=== PATIENT | male | born 1960 | race Caucasian/White ===

== ENCOUNTER 2016-08-17 09:16 | Emergency (ER) | payer OTHER ==
[2016-08-17] MEDS ORDERED: NS 0.9% 1000 ML* 1,000 ML IV ONE (09:35)
[2016-08-17 10:08] LABS: Hematocrit 42 % (42-52); Hemoglobin 13.9 g/dl (14.0-18.0); Mean Corpuscular HGB Conc 33 g/dl (31-36); Mean Corpuscular Hemoglobin 30 pg (27-31); Mean Corpuscular Volume 90 fL (80-94); Mean Platelet Volume 8 um3 (7.4-10.4); Red Blood Count 4.65 10^6/ul (4.0-5.4); Red Cell Distribution Width 13 % (10.5-15); White Blood Count 8.8 10^3/ul (3.5-10.8)
[2016-08-17 10:24] LABS: Albumin 4.4 g/dL (3.2-5.2); BUN/Creatinine Ratio 17.8 (8-20); C Reactive Protein 10.85 mg/L (< 5.00); Calcium 9.2 mg/dL (8.6-10.3); EGFR African American 113.1 (>60); EGFR Non-African American 87.9 (>60); Globulin 2.6 g/dL (2-4); Potassium 4.1 mmol/L (3.5-5.0); Total Bilirubin 0.5 mg/dL (0.2-1.0)
[2016-08-17 11:17] LABS: Urine Bilirubin Negative (Negative); Urine Glucose Negative (Negative); Urine Nitrite Negative (Negative)
[2016-08-17] MEDS ORDERED: Iohexol 300* (CONTRAST) 10 ML SDV IV ONE (12:06)
[2016-08-17] MEDS ORDERED: metroNIDAZOLE TAB* 250 MG PO ONE (13:20)
--- NOTE | 2016-08-17 13:33 | RAD ---
CLINICAL HISTORY: Abdominal pain and diarrhea COMPARISON: None TECHNIQUE: Multiple contiguous axial CT scans were obtained of the abdomen and pelvis after the administration of intravenous contrast. Coronal and sagittal multiplanar reformations are submitted for review. Oral contrast was administered. Delayed images were obtained through the abdomen and pelvis. FINDINGS: LUNG BASES: The lung bases are clear. LIVER: The liver is normal in shape, size, contour, and attenuation. BILE DUCTS: There is no intrahepatic or extrahepatic biliary dilatation. GALLBLADDER: The gallbladder is normal, without pericholecystic inflammatory change. PANCREAS: The pancreas is normal, without mass or ductal dilatation. SPLEEN: Normal in size and appearance. UPPER GI TRACT: Evaluation of the gastrointestinal tract is limited by incomplete gastric distention. The upper GI tract is unremarkable. SMALL BOWEL AND MESENTERY: The small bowel is normal in contour, course, and caliber. There is no obstruction or dilatation. COLON: There is mucosal thickening of the descending and sigmoid colon. There is mild stranding of the pericolic fat at the descending-sigmoid junction. ADRENALS: Normal bilaterally. KIDNEYS: The kidneys are normal in shape, size, contour, and axis. There is no hydronephrosis or nephrolithiasis. BLADDER: The bladder is smooth in contour. PELVIC ORGANS: The prostate gland is normal. The seminal vesicles are symmetric. AORTA: The aorta is normal. IVC: Unremarkable LYMPH NODES: There is no lymphadenopathy by size criteria. ABDOMINAL WALL: There is a small fat-containing of focal hernia. BONES AND SOFT TISSUES: There are mild diffuse degenerative changes. OTHER: None IMPRESSION: MUCOSAL THICKENING OF THE DESCENDING AND SIGMOID COLON WITH MILD PERICOLONIC INFLAMMATORY CHANGE AT THE DESCENDING AND SIGMOID JUNCTION, SUGGESTIVE OF COLITIS.
[2016-08-17 14:29] VITALS: BP 132/93
--- NOTE | 2016-08-17 14:42 | ED ---
Andree Mitchell Janilya, scribed for Boo Lennon MD on 08/17/16 at 0933 . Abdominal Pain/Male - HPI Summary HPI Summary: A 56 y/o male came in to [facility] presenting w/ a gradual onset of intermittent lower bilateral abd pain starting 3 days ago. Severity rated 5/10. 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 Getting up, playing with a dog, exerting, coughing aggravate the pain. Sitting down and resting alleviate the pain. In addition, pt reports watery diarrhea w/o mucus or blood. This morning, pt had one episode of diarrhea. Pt denies any recent travel outside of the [place]. No one in the family is experiencing these Sx. Also, according to pt, he recently stopped taking Abx ( Amoxicilin) for sinusitis on night, 08/15. Pt denies fever, chills, nausea, vomiting. Pt After the operation PSHx appendicitis, hernia repair 2 years ago at [place]. No PMHx of diverticulitis. PMHx cardiac problems. - History of Current Complaint Stated Complaint: ABD PAIN Hx Obtained From: Patient Onset/Duration: Gradual Onset, Lasting Days, Still Present Timing: Intermittent Severity Initially: Moderate Severity Currently: Moderate Pain Intensity: 2 Pain Scale Used: 0-10 Numeric Location: Diffuse - lower abd Radiates: No Aggravating Factor(s): Nothing Alleviating Factor(s): Nothing Associated Signs And Symptoms: Positive: Diarrhea. Negative: Fever, Nausea, Vomiting - Allergies/Home Medications Allergies/Adverse Reactions: Allergies Allergy/AdvReac Type Severity Reaction Status Date / Time No Known Allergies Allergy Verified 06/24/14 11:30 PMH/Surg Hx/FS Hx/Imm Hx Previously Healthy: Yes Endocrine/Hematology History: Denies: Hx Diabetes Cardiovascular History: Denies: Hx Hypertension, Hx Pacemaker/ICD Respiratory History: Denies: Hx Asthma History: Denies: Hx Renal Disease Sensory History: Denies: Hx Hearing Aid Psychiatric History: Denies: Hx Panic Disorder - Surgical History Surgery Procedure, Year, and Place: APPENDECTOMY Infectious Disease History: No Infectious Disease History: Denies: Traveled Outside the [place] in Last 30 Days - Family History Known Family History: Negative: Cardiac Disease, Hypertension, Diabetes - Social History Occupation: Employed Full-time Lives: With Family Alcohol Use: Occasionally Hx Substance Use: No Substance Use Type: Reports: None Hx Tobacco Use: No Review of Systems Negative: Fever, Chills Positive: Abdominal Pain, Diarrhea. Negative: Vomiting, Nausea All Other Systems Reviewed And Are Negative: Yes Physical Exam - Summary Physical Exam Summary: VITAL SIGNS: Reviewed. GENERAL: Patient is a well developed and nourished male who is lying comfortable in the stretcher. Patient is not in any acute respiratory distress. HEAD AND FACE: Normocephalic and atraumatic. EYES: PERRLA, EOMI x 2, No injected conjunctiva. EARS: Hearing grossly intact. Ear canals and tympanic membranes are WNL. MOUTH: Oropharynx within normal limits. NECK: Supple, trachea is midline, no adenopathy, no JVD. CHEST: Symmetric, no tenderness at palpation LUNGS: Clear to auscultation bilaterally. No wheezing or crackles. CVS: RRR,, S1 and S2 present, no murmurs or gallops appreciated. ABDOMEN: Soft, lower abdomnal tenderness. Positive umbilical herni which it is reducible and non tender. . No signs of distention. Positive bowel sounds. No rebound no guarding, and no masses palpated. No abdominal bruit or pulsations. No inguinal hernias. Good femoral pulses. EXTREMITIES: FROM in all major joints, no edema, no cyanosis or clubbing. NEURO: Alert and oriented x 3. No acute neurological deficits. Speech is normal. SKIN: Dry and warm Triage Information Reviewed: Yes Vital Signs On Initial Exam: Initial Vitals Temp Pulse Resp BP Pulse Ox 97.0 F 63 15 133/80 100 08/17/16 09:17 08/17/16 09:17 08/17/16 09:17 08/17/16 09:17 08/17/16 09:17 Vital Signs Reviewed: Yes Diagnostics - Vital Signs Vital Signs Temp Pulse Resp BP Pulse Ox 08/17/16 09:17 97.0 F 63 15 133/80 100 - Laboratory Result Diagrams: 08/17/16 09:45 08/17/16 09:45 Lab Statement: Any lab studies that have been ordered have been reviewed, and results considered in the medical decision making process. - CT abd/pel CT Interpretation: Positive (See Comments) - IMPRESSION: MUCOSAL THICKENING OF THE DESCENDING AND SIGMOID COLON WITH MILD PERICOLONIC INFLAMMATORY CHANGE AT THE DESCENDING AND SIGMOID JUNCTION, SUGGESTIVE OF COLITIS. CT Interpretation Completed By: Radiologist Abdominal Pain Fem Course/Dx - Course Assessment/Plan: A 56 y/o male came in to [facility] presenting w/ a gradual onset of intermittent lower bilateral abd pain starting 3 days ago. Severity rated 5/ 10. 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 Getting up, playing with a dog, exerting, coughing aggravate the pain. Sitting down and resting alleviate the pain. In addition, pt reports watery diarrhea w/o mucus or blood. This morning, pt had one episode of diarrhea. Pt denies any recent travel outside of the [place]. No one in the family is experiencing these Sx. Also, according to pt, he recently stopped taking Abx (Amoxicilin) for sinusitis on night, 08/15. Pt denies fever, chills, nausea, vomiting. Pt After the operation. PSHx appendicitis, hernia repair 2 years ago at [place]. No PMHx of diverticulitis. PMHx cardiac problems. Abd/pel CT shows the following. IMPRESSION: MUCOSAL THICKENING OF THE DESCENDING AND SIGMOID COLON WITH MILD PERICOLONIC INFLAMMATORY. CHANGE AT THE DESCENDING AND SIGMOID JUNCTION, SUGGESTIVE OF COLITIS. Blood work within normal limits, except for the following: hemoglob 13.9. C-reactive proteins 10.85 H. urine analysis is neg for UTI. C. diff is positive. In the ED course, pt was here on the IV fluids approx 2L of normal saline. He was also given 1 dose of Flagyl 500 mg PO. At this point, we discussed admission w/ pt and pt's . However, they decline admission. I discussed w/ Dr. Sexton from the hospitalist services. After he reviewed blood work results, he reports he can be treated as an outpatient w/ Flagyl and good hydration. I discussed the plan w/ pt and he agreed. I will send prescription of Flagyl for 10 days. Pt is AxOx3 and hemodynamically stable. Pt will be discharged home w/ c. diff. I discussed all the findings and test results with the patient. Patient was instructed to return to the emergency room immediately if any of the symptoms return or worsens. Plan of care was discussed with the patient and understands and agrees. All questions were answered at patient satisfaction. There were no further complaints or concerns. Lung exam before discharge: CTA B/L. Good air exchange. No wheezing or crackles heard. CVS: S1 and S2 present. No murmurs appreciated. Patient is alert and oriented x 3. Patient is hemodynamically stable. Patient will be discharged home with follow up PCP in the next 2-3 days - Diagnoses Differential Diagnosis/HQI/PQRI: Constipation, Diverticulitis, Urinary Tract Infection Provider Diagnoses: C. difficile colitis - Provider Notifications Discussed Care Of Patient With: Dr. Sexton (hospitalist) at 1340: discussed abd/ pelvis CT results Discharge - Discharge Plan Condition: Stable Disposition: HOME Prescriptions: Metronidazole [Flagyl 500 MG TAB] 500 mg PO TID #30 tab Patient Education Materials: Colitis (ED) Referrals: Clayton Lawrence MD [Primary Care Provider] - 2 Days The documentation as recorded by the Andree stoddard Janilya accurately reflects the service I personally performed and the decisions made by Saji greenfield Walter, MD.
== END 2016-08-17 14:29 | disposition home or self-care (01) ==
LOC: ED 09:16
DX: A04.7 Enterocolitis due to Clostridium difficile (principal); R19.7 Diarrhea, unspecified; R10.30 Lower abdominal pain, unspecified
CPT/HCPCS: 36415; 74177; 80053; 81003; 82150; 83605; 83630; 83690; 83880; 84484; 85025; 86140; 87045; 87046; 87493; 87899; 99283; A9270-GY; Q9967

== ENCOUNTER 2017-12-02 07:01 | Day surgery (SDC) | payer OTHER ==
--- NOTE | 2017-12-01 11:38 | HP ---
PREOP HISTORY AND PHYSICAL: DATE OF ADMISSION: 12/02/17 [facility] CHIEF COMPLAINT: Left thumb and ring finger triggering and locking. HISTORY OF PRESENT ILLNESS: Sonido is a 57-year-old man who complains of locking and triggering of his left thumb and left ring finger. He has had two injections and now presents for surgical treatment as he has had recurrent issues. There was no injury that began this problem. He denies numbness or tingling. He is left hand dominant. PAST MEDICAL HISTORY: None. PAST SURGICAL HISTORY: Appendectomy. MEDICATIONS: None. DRUG ALLERGIES: None. FAMILY HISTORY: Noncontributory. SOCIAL HISTORY: Lives with his spouse. He works in maintenance. He has never smoked. He denies alcohol use and illicit drug use. REVIEW OF SYSTEMS: Negative for cephalic, cardiovascular, respiratory, gastrointestinal, genitourinary, other musculoskeletal, skin, neurologic, endocrine, and hematologic symptoms. PHYSICAL EXAMINATION GENERAL: This is a healthy-appearing, very pleasant man, in minimal distress at rest. VITAL SIGNS: Height is 69 inches. Pulse 58, blood pressure 110/70, temperature 97.8. HEENT: Unremarkable. He has good range of motion of his neck without pain. No masses are palpated and his eye movements are concentric. LUNGS: Clear to auscultation. Good inspiratory effort. No wheezing. CARDIAC: Regular rate and rhythm without murmur. PERIPHERAL VASCULAR: He has palpable pulses and no peripheral edema. EXTREMITIES: He has tenderness to the A1 rock at the left thumb and the left ring finger. When he makes a fist, they lock in flexion. NEUROLOGIC: He is alert and oriented without focal deficits. SKIN: He has intact skin and intact neurovascular function. IMPRESSION: Left thumb and left ring finger trigger finger. PLAN: For left thumb and left ring finger trigger finger releases. Surgical procedure, risks, and benefits were explained to the patient today and he agrees to proceed. We will see him back in followup for reevaluation approximately 10 days postop. [id number]/[facility] #: [id number] MISHA
[~2017-12-02 07:01] MED LIST: Buffered Lidocaine 0.9% SYRIN* 5 ML/SYR SYRINGE INTRADERM ONE
[2017-12-02] MEDS ORDERED: ceFAZolin 2 GM PREMIX (*) 0 GM/0 ML BAG IVPB ONE (07:09)
[2017-12-02] MEDS ORDERED: Lidocaine 1% INJ* 10 MG/ML 30 ML SDV ONE (07:16)
[2017-12-02] MEDS ORDERED: fentaNYL* 50 MCG/ML 2 ML VIAL (100 MCG VIAL) ONE (08:19)
[2017-12-02] MEDS ORDERED: Midazolam* 1 MG/ML 2 ML VIAL (2 MG) ONE (08:19)
[2017-12-02] MEDS ORDERED: Propofol* 10 MG/ML 20 ML BTL IV PUSH ONE (08:19)
[2017-12-02 09:15] VITALS: BP 120/75
--- NOTE | 2017-12-03 02:50 | OP ---
DATE OF OPERATION: 12/02/17 [facility] DATE OF : 64 SURGEON: Brandie Iverson MD BURIAL [employer]ULT DELIVERER AND INSTALLER: TRAM Stallings ANESTHESIA: Local MAC. PRE-OP DIAGNOSIS: Left thumb and ring finger trigger fingers. POST-OP DIAGNOSIS: Left thumb and ring finger trigger fingers. OPERATIVE PROCEDURE: Left thumb and ring finger trigger release. ESTIMATED BLOOD LOSS: Zero. TOURNIQUET TIME: About 15 minutes. INDICATIONS FOR PROCEDURE: Sonido is a 57-year-old male with triggering and locking of his left thumb and ring finger. He presents for trigger finger release of his left thumb and ring. DESCRIPTION OF PROCEDURE: The patient was brought to the operating room, was given a sedation anesthetic and a local infiltration total of 10 cc of 1% plain lidocaine in the palm of his right hand overlying the A1 rock of the ring finger and thumb. Skin of his left hand and forearm was prepped and draped in the usual sterile fashion. The hand and forearm were exsanguinated and the tourniquet elevated to 250 mmHg. A transverse incision was made, centered over the A1 rock of the left thumb, dissected bluntly through the subcutaneous tissue. The digital neurovascular bundles were retracted by the surgical brace maker and then the A1 rock was incised longitudinally completely releasing the FPL tendon, which was in good condition. The wound was irrigated and the skin edges were reapproximated with 4-0 nylon suture. A transverse incision was made, centered over the A1 rock of the left ring finger, dissected through the subcutaneous tissue down to the A1 rock. The digital neurovascular bundles were retracted. The rock was incised longitudinally completely releasing the flexor tendons, which were in good condition. The wound was irrigated and the skin edges reapproximated with 4-0 nylon suture. The wound was dressed with Xeroform, 4x4, Webril, and an Chip wrap. The patient tolerated the procedure well, was brought to the recovery room in good condition. [id number]/[facility] #: [id number] [facility]
== END 2017-12-02 09:40 | disposition home or self-care (01) ==
LOC: OREAST 07:01
PROVIDERS: ATTEND Orthopaedic Surgery
DX: M65.312 Trigger thumb, left thumb (principal); M65.342 Trigger finger, left ring finger; Z87.891 Personal history of nicotine dependence
CPT/HCPCS: J0690; J2250; J2704; J3010